=== PATIENT | male | born 1950 | race Caucasian/White ===

== ENCOUNTER → 2018-07-08 10:02 | Outpatient (CLI) | payer MEDICARE, SELFPAY ==
--- NOTE | 2018-07-08 | DI.MRI.S_ITS ---
PROCEDURE: MR KNEE LT WO CON INDICATIONS: UNILATERAL PRIMARY OSTEOARTHRITIS OF LEFT KNEE TECHNIQUE: Noncontrast sagittal PD fast spin echo and T2 fast spin echo with fat saturation, sagittal 3-D FLASH with fat saturation; coronal T1 spin echo and PD fast spin echo with fat saturation, and axial PD fast spin echo with fat saturation through the knee. COMPARISON: [facility], CR, XR KNEE ARTHRITIC SERIES BI, 10/20/2017, 14:00. FINDINGS: Image quality: Excellent. Menisci: Medial extrusion of the medial meniscus is present. There is amorphous high signal intensity throughout the anterior and posterior horns medial meniscus, as well as the medial meniscal body, demonstrating superior and inferior articular surface extension, indicating multifocal degenerative tearing. There is amorphous and linear high signal intensity throughout the anterior and posterior horns lateral meniscus, as well as the lateral meniscal body, demonstrating superior and inferior articular surface extension, indicating multifocal complex tearing. Cruciate ligaments: Posterior cruciate ligament is intact. Chronic full-thickness anterior cruciate ligament tearing is present. Medial structures: The medial collateral ligament appears intact. Visualized portions of the pes anserinus tendons appear normal. No abnormal bursal fluid. Lateral structures: The lateral collateral ligament, long and short heads of the biceps femoris tendon appear intact. The popliteus tendon appears normal. Iliotibial band appears normal. Anterior structures: The quadriceps and patellar tendons appear intact. Patellar alignment is normal. No femoral trochlear dysplasia or ventral trochlear prominence. No edema in the infrapatellar fat pad. Bones and cartilage: No bone marrow contusions or fractures. Severe tricompartmental periarticular osteophyte formation is present. There is mild ill-defined subchondral T2 signal elevation and intraosseous ganglia within the weightbearing aspects of the medial lateral femoral condyles as well as the medial and lateral tibial plateaus. Severe diffuse articular cartilage loss overlies the weightbearing aspects of the medial femoral condyle and medial tibial plateau. Moderate to severe diffuse irregular articular cartilage loss overlies the weightbearing aspects of the lateral femoral condyle and lateral tibial plateau. Multifocal small to moderate size regions of moderate to high grade articular cartilage loss overlying the medial and lateral patellar facets as well as the patellar apex. Joint space: There is a small knee joint effusion and a trace Summers's cyst. Scattered small intra-articular loose bodies, including an 8mm diameter loose body within the Summers's cyst. Normal appearing synovial plicae are incidentally noted. IMPRESSION: 1. Severe tricompartmental osteoarthritis with associated articular cartilage loss. 2. Chronic full-thickness anterior cruciate ligament tear. 3. Severe complex tearing of the medial and lateral menisci. 4. Small knee joint effusion with intra-articular loose bodies. Dictated by: Sukumar Dang M.D. on 07/08/2018 at 11:26 Approved by: Sukumar Dang M.D. on 07/08/2018 at 11:30
== END ==
PROVIDERS: PCP Nurse Practitioner; Visit Provider Orthopaedic Surgery
DX: M17.12 Unilateral primary osteoarthritis, left knee (principal); S83.272A Complex tear of lateral meniscus, current injury, left knee, initial encounter; S83.232A Complex tear of medial meniscus, current injury, left knee, initial encounter; S83.512A Sprain of anterior cruciate ligament of left knee, initial encounter; M25.462 Effusion, left knee
CPT/HCPCS: 73721

== ENCOUNTER 2018-08-07 11:27 | Observation (INO) | payer MEDICARE, SELFPAY ==
[2018-07-27 07:58] VITALS: BMI 26.0
[2018-08-06] VITALS (19 sets, daily range): BP systolic 101–161; BP diastolic 62–95; PULSE 40–91; RESP 7–20; TEMP 36.2–36.8; O2SAT 96–100; BMI 26.0
--- NOTE | 2018-08-06 06:00 | DI.RAD.S_ITS ---
PROCEDURE: XR KNEE LT 1TO2V INDICATIONS: post-operative prosthesis placement TECHNIQUE: 2 view(s) of the knee acquired. COMPARISON: [facility], CR, XR KNEE ARTHRITIC SERIES BI, 10/20/2017, 14:00. FINDINGS: Bones: Patient is status post knee joint arthroplasty. Hardware components are in expected positions. Visualized bony structures are intact. Soft tissues: Overlying postoperative changes are noted. IMPRESSION: No acute cardiopulmonary disease. Dictated by: Mayra Draper M.D. on 08/06/2018 at 15:09 Approved by: Mayra Draper M.D. on 08/06/2018 at 15:09
[2018-08-06] MEDS: ACETAMINOPHEN 325 MG TABLET 975 MG PO ×3 (10:10→20:19)
[2018-08-06] MEDS: PREGABALIN 75 MG CAPSULE PO (10:10)
[2018-08-06] MEDS: CELECOXIB 200 MG CAPSULE PO (10:10)
[2018-08-06] MEDS: LACTATED RINGERS 1,000 ML 42 ML IV (10:10)
--- NOTE | 2018-08-06 10:24 | PM.PREOP ---
Pre-operative Note Interval Note Pre-op Check: Yes History & Physical Reviewed by Physician and Yes Exam Performed Changes: No
[2018-08-06] MEDS: MIDAZOLAM 2 MG/2 ML VIAL IV ×2 (10:25→10:28)
[2018-08-06] MEDS: fentaNYL 100 MCG/2 ML INJ 50 MCG IV ×2 (10:25→10:28)
[2018-08-06] MEDS: CLINDAMYCIN 900 MG/50 ML PIGGYBACK 50 MG IV ×2 (10:41→19:54)
--- NOTE | 2018-08-06 10:43 | P.OP_ITS ---
Operative Date/Time/Diagnoses Date of procedure: 08/06/18 Pre-op diagnosis: Left knee osteoarthritis Post-op diagnosis: same Procedure & Clinicians Procedure: Left total knee arthroplasty Same procedure as scheduled: Yes Indications: The patient presents today for total knee arthroplasty after failure of conservative treatment. The nature of the procedure including the risks and benefits, alternatives, postoperative course and expected outcome were discussed and all questions answered. Consent was obtained. Operative site confirmed and marked. Surgeon: Jaime Astudillo Digital Product Manager: Henok Kim Anesthesia Type: General, Spinal, Peripheral nerve block and Local Operative Notes Findings: Severe osteoarthritis with varus alignment. Closure Type: primary Specimen(s): none sent Implants & Drains: [employer] BCS: 6 femoral component, 6 tibial component, 9 mm BCS polyethylene tray and 35 x 9 mm round patella Applied: implant(s) Estimated Blood Loss (mL): 50 Tourniquet time (min): 24 Procedure in detail: The patient was taken to the operative suite and placed under general and spinal anesthesia with an adductor nerve block. The patient was given prophylactic antibiotics prior to surgery. The patient was also given tranexamic acid, 1 g, just prior to surgery for postoperative hemostasis. The lateral knee was prepped and the joint injected with 20 mL of 1% Lidocaine with epinephrine. The knee was then prepped and draped in usual sterile fashion. The leg was exsanguinated with an Esmarch dressing and the tourniquet raised to 250 torr. A 15 cm anterior incision was made. Next a medial trivector arthrotomy was made. The extensor mechanism was marked to ensure accurate repair. Initial exposing dissection was carried out medially and laterally. The knee was then extended and the patellar thickness was measured and a cut made removing approximately 9 mm of bone with a goal of restoring normal patellar thickness. The patella was then sized and drilled. Some excess lateral bone was excised and the patellofemoral ligament released. The tourniquet was then released. The knee was then flexed and the [employer] femoral guide was placed. The anterior pins were placed and the distal rotation holes drilled. The distal cutting guide was placed and the templated distal femoral cut was made. The templating cutting block was then placed and the anterior, posterior and chamfer cuts made. The [employer] tibial guide was placed and the alignment checked along the axis of the proximal tibial with a julian. The proximal tibial cut was then made with an oscillating saw. All meniscus and bony debris was then removed. Flexion extension gaps were checked. No specific balancing was required other than routine exposure and removal of osteophytes. The soft tissues were then injected with a combination of 20 mL of half percent Marcaine with epinephrine and 20 mL of Exparel. The trial components were then placed. The knee went into full extension and flexion beyond 120?. There was excellent medial- lateral balance throughout motion. Patellar tracking was excellent. The trial components were removed and size is confirmed for the final implants. The knee was then exsanguinated with an Esmarch dressing and the tourniquet reapplied for cementing. The knee was cleansed with Pulsavac irrigation and dried. The final components were cemented in with high viscosity vacuum mixed bone cement with antibiotics. The knee was held in extension and the patellar clamp until the cement had adequately cured. The knee was then irrigated with dilute Betadine solution. The extensor mechanism was closed with 5 interrupted #1 Vicryl sutures in 90 degrees of flexion. The joint was then injected with a combination of 1 g of tranexamic acid and 20 mL of quarter percent Marcaine with epinephrine. The subcutaneous tissue was closed with 2-0 Vicryl. The skin was closed with maxx and surgical adhesive. An Aquacell dressing and Vimal wrap were then applied. Condition: stable Disposition: PACU Plan for aftercare: [facility] protocol.
--- NOTE | 2018-08-06 11:23 | SUR.OPER ---
Supine on padded OR bed. Pillow under head, arms secured on padded armboards <90 degree abduction. Safety belt across torso. Non-operative leg secured with tape over blanket over lower leg. Operative leg secured in DeMayo/Anil positioner. Foam padded brace at thigh of operative leg.
[2018-08-06] MEDS: BUPIVACAINE 0.5% W/ EPI (PF) VIAL 30 ML INJ (11:30)
[2018-08-06] MEDS: TRANEXAMIC ACID 1,000 MG VIAL 1000 MG INJ ×2 (11:31→11:34)
[2018-08-06] MEDS: BUPIVACAINE LIPOSOME 266 MG/20 ML VIAL INJ (11:32)
[2018-08-06] MEDS: LIDOCAINE 1% W/EPI INJ 20 ML INJ (11:32)
[2018-08-06] MEDS: POVIDONE-IODINE 15 ML, SODIUM CHLORIDE 0.9% 250 ML TOP (11:33)
--- NOTE | 2018-08-06 12:59 | SUR.PHASEI ---
Report called to Jesús.
--- NOTE | 2018-08-06 13:20 | SUR.PHASEI ---
Pt transferred to the floor. Report to [place]. VS stable. IV saline locked. Drsg CDI. Spinal level L3-4. No sensation or movement to Lt foot, able to move Rt foot. Belongings bag with patient.
[2018-08-06] MEDS: LACTATED RINGERS 1,000 ML 125 ML IV ×2 (14:13→23:55)
[2018-08-06] MEDS: OXYCODONE IR 5 MG TABLET PO ×2 (17:00→23:50)
[2018-08-06] MEDS: SODIUM CHLORIDE 0.9% 100 ML 500 ML IV (18:16)
--- NOTE | 2018-08-06 18:23 | PC.NURSE ---
Addendum entered by Jessica Davila R.N. 08/06/18 21:36: 1940: BP 131/92, HR 91. Patient awake, alert, asymptomatic. Son at bedside providing supportive care. Calm, pleasant and cooperative. Up out of bed with 1 PA, voided. No SOB, dizziness, or chest pain. Original Note: 175: Patient awake and alert, became diaphoretic, clammy, pale, and dizzy. Patient was laying in bed prior to event, heart rate noted 39-44 on monitor, with 48 Apical rate. O2 sat 98% on RA. Difficulty obtaining a BP, called for staff assistance. Pulses 2+ proximal and distal. Blood glucose 126 mg/dl. 175: BP 85/51 heart rate increased 62, patient states still dizzy but feels better, remain awake and alert. Initiated IVF bolus 500 ml. 175: BP 101/62, HR 70, patient warm, pink, mild pallor noted. 175: BP 107/74, HR 85, warm, pink, non diaphoretic. Continue awake, alert, denies dizziness or nausea. 1800: Notify Dr. Jenkins regarding event, obtained order for IVF, continuous vehicle monitor technician, and to notify her if further decline for medical management consult. Tele: NSR, BBB, occasional PACs. 180: BP 126/73, HR 82, remain asymptomatic. Warm, pink, 2+ pulses distal and proximal. 180: 130/77, 80, patient continue awake, alert, talkative, remain asymptomatic. No c/o chest pain, dizziness, or SOB. Will continue to monitor closely. 184: BP: 133/75, HR 81, 98% on RA, RR 18. Patient remain awake and alert, asymptomatic.
[2018-08-06] MEDS: ASPIRIN EC 81 MG TABLET PO (20:19)
[2018-08-07] VITALS (11 sets, daily range): BP systolic 102–160; BP diastolic 37–97; PULSE 49–92; RESP 15–18; TEMP 36.5–37.1; O2SAT 95–100
--- NOTE | 2018-08-07 | DI.RAD.S_ITS ---
PROCEDURE: XR CHEST 1V INDICATIONS: hypotension TECHNIQUE: One view of the chest was acquired. COMPARISON: None. FINDINGS: Surgical changes and devices: None. Lungs and pleura: No pleural effusions or pneumothorax. Lungs are clear. Mediastinum: Mediastinal contours appear normal. Heart size is normal. Bones and chest wall: No suspicious bony lesions. Overlying soft tissues appear unremarkable. IMPRESSION: No acute cardiopulmonary pathology. Dictated by: Prabhu Ta M.D. on 08/07/2018 at 20:09 Approved by: Prabhu Ta M.D. on 08/07/2018 at 20:09
[2018-08-07] MEDS: CLINDAMYCIN 900 MG/50 ML PIGGYBACK 50 MG IV (02:35)
[2018-08-07] MEDS: OXYCODONE IR 5 MG TABLET PO ×5 (04:35→23:57)
[2018-08-07 06:52] LABS: Hemoglobin 11.5 g/dL (13.5-17.5)
--- NOTE | 2018-08-07 07:45 | PM.DS.1 ---
History of Present Illness Chief complaint: 37022 Discharge Providers Date of admission: 08/06/18 09:19 Primary care physician: LENA Coates Consults: 08/06/18 13:22 Consult to Discharge Planning Routine Comment: Consult to Physical Therapy Evaluate & Treat Comment: Physician Instructions: postop TKA protocol Consult to Respiratory Therapy Evaluate & Treat Comment: Physician Instructions: Evaluate and treat Discharge provider: Lana Alcantara PA-C Exam Vital Signs (past 8 hours): - 08/07/18 04:49 Temperature 97.7 F Pulse Rate 68 Respiratory Rate 16 Blood Pressure 123/67 Pulse Oximetry 95 Oxygen Delivery Method Room Air Oxygen Flow Rate 0 Objective Labs Result Diagrams: 08/07/18 06:20 Labs: Laboratory Results - last 24 hr 08/07/18 06:20 Hgb 11.5 L Hct 34.0 L Discharge Plan Discharge Plan Patient Disposition: Home Discharge Med Rec/Prescriptions Prescriptions: New acetaminophen 325 mg Tablet 975 mg PO TID Qty: 0 RF: 0 aspirin 81 mg Tablet,Delayed Release (Dr/Ec) 81 mg PO BID Qty: 0 RF: 0 oxycodone 5 mg Tablet 5 mg PO Q4-6H PRN (Reason: Pain, Moderate (4-6)) Qty: 0 RF: 0 meloxicam [Mobic] 7.5 mg Tablet 15 mg PO 0800 Qty: 0 RF: 0 hydroxyzine pamoate 25 mg Capsule 25 mg PO Q4HR PRN (Reason: Muscle Spasm) Qty: 0 RF: 0 Continue atorvastatin 80 mg Tablet 80 mg PO QAM RF: 0 losartan 100 mg Tablet 100 mg PO BEDTIME RF: 0 Discontinued aspirin [Aspir-81] 81 mg Tablet,Delayed Release (Dr/Ec) 81 mg PO DAILY RF: 0 ibuprofen 200 mg Tablet 400 mg PO QAM RF: 0 Provider Discharge Instructions Diet: Diet as Tolerated Activity: Weightbearing as tolerated, use walker until cleared by physical therapy. Cold/Heat Therapy: Apply ice twenty minutes at a time to operative area at least hourly while awake. Skin/Wound/Dressing Care Report to your healthcare provider any signs of infection, such as:: chills, fever, night sweats, increased pain and unusual drainage Dressing: Keep dressing clean, dry, and intact. May shower with dressing in place. Visit Report/Discharge Packet Instructions: DI for Knee Replacement Discharge Data Primary Care Provider: Helen Giordano Attending Provider: Jaime Astudillo Admit Date/Time: 08/06/18 09:19 Quality VTE Deep Vein Thrombosis/Pulmonary Embolism Present on Admission: No
[2018-08-07] MEDS: ATORVASTATIN 20 MG TABLET 80 MG PO (08:23)
[2018-08-07] MEDS: MELOXICAM 7.5 MG TABLET 15 MG PO (08:23)
--- NOTE | 2018-08-07 08:23 | PM.PNPO.1 ---
Subjective Date Patient Seen: 08/07/18 Time Patient Seen: 08:24 Interval history: I was asked to evaluate the patient by the nurse. Patient had been up in his chair and had been walking a little bit in the room. While he was sitting in the chair with his legs down he became lightheaded and was hypotensive and bradycardic. He was placed in Trendelenburg position and his symptoms resolved fairly quickly. He had a similar episode yesterday which resolved with position. EKG done yesterday was normal. He states he feels normal at this time. He has not had any similar episodes in the past. He is on valsartan for blood pressure. Has been getting some IV LR. Apparently did well with physical therapy yesterday and was to be discharged home today. Exam Vital Signs (past 8 hours): - 08/07/18 04:49 08/07/18 08:02 08/07/18 08:10 Temperature 97.7 F 98.4 F Pulse Rate 68 76 49 L Respiratory Rate 16 16 Blood Pressure 123/67 130/97 H 102/37 L Pulse Oximetry 95 100 08/07/18 08:15 Temperature Pulse Rate 67 Respiratory Rate Blood Pressure 127/67 Pulse Oximetry Oxygen Delivery Method Room Air Oxygen Flow Rate 0 Narrative Exam Narrative: Alert, oriented in no acute distress lying in beach chair position in chair. Neck. No bruits. Lungs clear. Clear to auscultation without rales rhonchi or wheeze. Heart. Regular rhythm without murmur or extra sound. Abdomen. Bowel sounds active in soft without mass or tenderness. Objective Labs Result Diagrams: 08/07/18 06:20 Labs: Laboratory Results - last 24 hr 08/07/18 06:20 Hgb 11.5 L Hct 34.0 L Assessment & Plan Post-op Postoperative Procedures Operation Date: 08/06/18 11:00 Actual Procedures Side Surgeon p Total Knee Arthroplasty Left Jaime Astudillo MD Will give patient bolus of normal saline 500 mL. Will hold his valsartan. Will observe patient today for any return of symptoms and see how his function is. The as repeat episode would plan to have the hospitalist evaluate the patient. Will hold discharge for today. Will plan discharge to home tomorrow if he is stable. Quality VTE Deep Vein Thrombosis/Pulmonary Embolism Present on Admission: No
[2018-08-07] MEDS: ACETAMINOPHEN 325 MG TABLET 975 MG PO ×2 (08:24→16:09)
[2018-08-07] MEDS: ASPIRIN EC 81 MG TABLET PO ×2 (08:24→20:01)
[2018-08-07] MEDS: SODIUM CHLORIDE 0.9% 100 ML 500 ML IV (08:30)
[2018-08-07] MEDS: LACTATED RINGERS 1,000 ML 125 ML IV ×2 (09:34→17:26)
--- NOTE | 2018-08-07 10:25 | PC.NURSE ---
HYPOTENSIVE/BRADYCARDIC EPISODE 0810. PATIENT HAD AMBULATED IN RM TO BR AND BACK THIS AM, ASYMPTOMATIC. AT 0810 WAS SITTING IN RECLINER W/ LEGS DEPENDANT AND BECAME DIAPHORETIC AND FELT DIZZY WHILE SITTING. BP 102/37 HR 49, BUT LOW 40 ON TELE MONITOR. RECLINED INTO TRENDELENBERG POSITION WITH PROMPT RESOLVE OF SYMPTOMS AND RECOVERY OF BP TO 127/67 AND HR 67. PATIENT DOES REPORT HE HAS NOT BEEN DRINKING MUCH IN THE WAY OF FLUIDS, ENCOURAGED PO FLUID INTAKE. NOTIFIED MAT RAGSDALE OF FINDINGS THIS AM WHICH ARE SECOND OCCURANCE, WITH FIRST OCCURANCE YESTERDAY [place]. JN ASSESSED PATIENT. PLAN TO HOLD DC UNTIL TOMORROW. GIVEN 500CC NS BOLUS. 0956: PATIENT READY TO GET UP TO BR TO VOID. RECUMBANT BP 136/66 HR 76 SITTING BP 128/72 HR 82 STANDING BP 118/76 HR 82 ASYMPTOMATIC DURING AMBULATION AND ONCE BACK TO RECLINER. RECHECKED BP AFTER AMBULATION, REMAINED STABLE 138/76 HR 83. LR CONTINUES TO RUN ORDERED.
--- NOTE | 2018-08-07 15:13 | CM.IDA ---
Discharge Planning/Care Management CM Discharge Assessment Start: 08/07/18 15:01 Freq: Status: Active Protocol: Document 08/07/18 15:01 JAM (Rec: 08/07/18 15:13 JAM [id number]) Discharge Planning Assessment Assigned National Recruiter ALFIE Plata DPOA/Assigned Designee Name kalpesh Bob Contact Information [phone] Advance Directives? No: Information mailed to patient History Provided By Patient Prior Living Arrangements House Household Members children Comment Lives w/son Type of transporation used prior to Drives own vehicle admit Independent with ADL's Yes Is patient alert and oriented? 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 Barriers to Discharge No Comment Met w/pt, explained role. Pt is POD#1 from left knee surgery. He expected to go home today but had a change in medical status this morning and may spend another night here. Pt explains he lives w/his son who has taken some time off to be available to assist pt prn. PT=home w/family to assist and outpt PT Pt confident about his return home when medically stable, family to transport home. Discharge Plan Home Transportation Arrangement Family Referrals Initiated None needed Whiteboard Updated in Patient Room with Yes name and ext. # of National Recruiter
--- NOTE | 2018-08-07 15:33 | PM.PNPO.1 ---
Subjective Date Patient Seen: 08/07/18 Time Patient Seen: 07:20 Interval history: Patient seen bedside s/p L. TKA POD #1. Patient is resting comfortably, however he had an episode of bradycardia yesterday that has since resolved. Pain is starting to worsen but is controlled by medication. He denies SOB, N/V, dizziness at this time. Exam Vital Signs (past 8 hours): - 08/07/18 08:02 08/07/18 08:10 08/07/18 08:15 Temperature 98.4 F Pulse Rate 76 49 L 67 Pulse Rate [Orthostatic Lying] Pulse Rate [Orthostatic Sitting] Pulse Rate [Orthostatic Standing] Respiratory Rate 16 Blood Pressure 130/97 H 102/37 L 127/67 Blood Pressure [Orthostatic Lying] Blood Pressure [Orthostatic Sitting] Blood Pressure [Orthostatic Standing] Pulse Oximetry 100 08/07/18 09:56 08/07/18 10:04 08/07/18 11:27 Temperature 98.7 F Pulse Rate 83 77 Pulse Rate [Orthostatic Lying] 76 Pulse Rate [Orthostatic Sitting] 82 Pulse Rate [Orthostatic Standing] 82 Respiratory Rate 15 Blood Pressure 138/76 116/57 L Blood Pressure [Orthostatic Lying] 136/66 Blood Pressure [Orthostatic Sitting] 128/72 Blood Pressure [Orthostatic Standing] 118/76 Pulse Oximetry 95 Oxygen Delivery Method Room Air Oxygen Flow Rate 0 Narrative Exam Narrative: WDWN NAD A&OX3. Dressing is clean, dry, and intact with no signs of drainage. He is NVI in the operative extremity with a soft and compressible calf. Objective Labs Result Diagrams: 08/07/18 06:20 Labs: Laboratory Results - last 24 hr 08/07/18 06:20 Hgb 11.5 L Hct 34.0 L Assessment & Plan Post-op Postoperative Procedures Operation Date: 08/06/18 11:00 Actual Procedures Side Surgeon p Total Knee Arthroplasty Left Jaime Astudillo MD 1. Continue PT, pain control, DVT prophylaxis. Discharge once stable and cleared by physical therapy. Quality VTE Deep Vein Thrombosis/Pulmonary Embolism Present on Admission: No
--- NOTE | 2018-08-07 16:15 | PT.IIE ---
Addendum entered and electronically signed by Tosha Stevens PT 08/07/18 17:58: this is to certify that I have reviewed this documentation and POC Original Note: Current Diagnoses Unilateral primary osteoarthritis, left knee (08/06/18) Surgery Performed Operation Date: 08/06/18 11:00 Actual Procedures p Total Knee Arthroplasty(Left) - Jaime Astudillo MD Surgical History (Last Updated 07/27/18 @ 08:08 by Diandra Goddard RN) Hx of appendectomy (Acute) Hx of arthroscopy of right knee (Acute) Medical History (Last Updated 07/27/18 @ 08:08 by Diandra Goddard RN) Arthritis (Acute) HTN (hypertension) (Acute) Hyperlipidemia (Acute) Polymyalgia (Acute) Physical Therapy Inpatient Evaluation/Re-Eval M1 PT/OT-IP Prior Functional Status Start: 08/06/18 17:39 Freq: NEEDED Status: Active Protocol: Document 08/07/18 16:15 (Rec: 08/07/18 17:55 [email or web address]) Medical Review Prior Functional Status Medical History Reviewed Yes Diet/Fluid Consistency Regular Communication No previous deficits noted. Mobility and Gait Prior to his knee surgery the patient was independent in all previous mobilities including ambulation and self care using no AD. Social History Household Members children Living Arrangements House Number of Floors (Floors) Two Floors Number of Stairs To Enter/Railing? 1 step to enter home. 15-20 steps to 2nd floor. Pt is set up to live on 1st floor and sponge bathe. Home Environment Standard Height Toilet Tub/Shower Home Equipment Front Wheel Walker Additional Social History Comment Son is avaliable for 24/7 assist. Pt's tub/shower is located on 2nd floor. M2 PT-IP Current Condition Start: 08/06/18 17:39 Freq: NEEDED Status: Active Protocol: Document 08/07/18 16:15 (Rec: 08/07/18 17:55 [email or web address]) Physical Therapy Current Condition Current Condition Evaluation Date 08/07/18 Treatment Diagnosis Left TKA; Orthostatic hypotension; difficulty walking Onset Date 08/06/2018 Weight Bearing Status Weight Bearing Status Weight Bear as Tolerated M3 PT-IP Subjective Start: 08/06/18 17:39 Freq: NEEDED Status: Active Protocol: Document 08/07/18 16:15 (Rec: 08/07/18 17:55 [email or web address]) Subjective Physical Therapy Visit Type Type Re-Evaluation Visit Start Time 16:15 Visit Stop Time 16:42 Total Visit Minutes 28 Number of PLASTIC MAKER Visits 0 Physical Therapy Visit Comments Patient Comments Pt agreeable to mobilize. Patient Goals Pt planning to d/c home with his son as 28/04 assist. Therapy Pain Assessment Pain When Pain Assessed At Rest Pain Present Pain Present Pain Reported Location Left Knee Scale Used 5/10 Pain Management Techniques Apply Cold Elevation Modification of Treatment Re-positioning Timing of Activity with Medications M4 PT-IP Mobility and Gait Start: 08/06/18 17:39 Freq: NEEDED Status: Active Protocol: Document 08/07/18 16:15 (Rec: 08/07/18 17:55 [email or web address]) PT-Bed Mobility Assessment Supine to Sit Supine to Sit Standby Assistance Sit to Supine Sit to Supine Minimal Assistance Scooting Scooting to Edge of Bed Standby Assistance PT-Transfer Assessment Comments Mobility Comments Resting/supine BP 141/73 HR 75 . Pt is SBA for supine to sit . BP at EOB is 106/59 HR 68. Cued to rest and breathe. Pt beginning to c/o dizziness, appears pale and diaphoretic. Assisted back to supine with Kavya x1. Supine BP 102/58 HR 61. Positioned pt with BLE elevated, pt cued for deep breathing and cold washcloth placed on forehead. After 1-2 mins. resting supine BP 134/ 78 HR 72. Nurse aware and pt left in room with nursing. PT-Balance Assessment Sitting Balance and Reactions Static Sitting Balance Ability Good M5 PT-IP Objective Assessments Start: 08/06/18 17:39 Freq: NEEDED Status: Active Protocol: Document 08/07/18 16:15 (Rec: 08/07/18 17:55 [email or web address]) Orientation Orientation/Cognition Level of Alertness Alert Orientation Name Age Birthday Month Date Year Day of Week Place Situation Language Function Ability No Deficits Noted Gross Range of Motion Lower Extremity ROM Assessment Left Impaired Impairments Performed AAROME for L knee flexion/extension. R knee flexion PROM after ~70deg. Strength Lower Extremity Strength Assessment Left Impaired Comments Strength Comments RLE WNL. L knee grossly 3+/5. M6 PT-IP Treatment Start: 08/06/18 17:39 Freq: NEEDED Status: Active Protocol: Document 08/07/18 16:15 (Rec: 08/07/18 17:55 [email or web address]) Physical Therapy Treatment Education Education Provided Precautions Weight Bearing Status Post-Op Packet Safety M7 PT-IP Assessment and Plan Start: 08/06/18 17:39 Freq: NEEDED Status: Active Protocol: Document 08/07/18 16:15 (Rec: 08/07/18 17:55 [email or web address]) PT Summary Assessment and Plan Potential Rehabilitation Potential Good Status of Condition at Evaluation Evolving Summary Impairments Pain ROM Strength Balance Bed Mobility Transfers Gait Activity Tolerance Progress Towards Goals Slow Progress due to Medical Issues Assessment Summary Pt s/p L TKA, orthostatic hypotension and difficulty walking. He was only able to tolerate 1-2 mins. sitting EOB prior to c/o dizziness and had decrease in BP and HR. Due to pt's decreased tolerance to activity, ongoing assessment of mobility is required. Pending pt progress with mobility and ambulation, we anticipate d/c to home with 24/7 assist and f/u for OP PT when pt is medically stable. Goals Bed Mobility Goal Independent Transfer Goal Standby Assistance Front Wheeled Walker Gait Goal Standby Assistance Front Wheel Walker Gait Distance 150 Other Goals up/down 1 platform step with fww CGA up/down 15 steps with R rail CGA as appropriate for pt safe access to 2nd floor where his tub/shower is located. Days to Meet Goals 3 Frequency of Treatment Frequency Of Treatment Twice a Day Treatment Plan Physical Therapy Treatment Plan Bed Mobility Training Transfer Training Gait Training Therapeutic Exercise Balance Retraining Post Op Education Discharge Planning Hot or Cold Pack Neuromuscular Re-ed Coordination Retraining Manual Therapy Other Recommendations and Next Treatment Progress ambulation and stair Focus climbing as tolerated. Recommendations To Nursing Amount of Assist Needed 1 Person Assist Discharge Recommendations PT Discharge Recommendations Home with 24/7 Assist Outpatient PT
--- NOTE | 2018-08-07 16:47 | PC.NURSE ---
Patient is A&O x3, pleasant and cooperative w/ staff. Pt up with PT around 1615 to stand and ambulate. Patient upon sitting up in bed exp. hypotensive and joann episode, b/p dropped from 141/73 to 102/57. Pt was placed in trend. pos and new b/p was obtained after cool wash cloth was placed on forhead. 134/78. Patients color returned to face but eye remained to appear glassy. Call placed to Dr. Poon regarding cont. of episodes per his note this AM if sxs persists then hospitalist to be contacted for consult. Patient is aware of butch. Ayah to call Dr. Kwong.
--- NOTE | 2018-08-07 18:44 | PM.CN ---
History of Present Illness Date Patient Seen: 08/07/18 Time Patient Seen: 18:44 Chief complaint: [id number] Reason for consult: Hypotension Requesting provider: Jaime Astudillo Narrative: 68-year-old male status post knee replacement surgery yesterday has been having some dizziness and lightheadedness over the course of the last 24 hr. Today again when he got up to do physical therapy became very lightheaded had some nausea. He was noted to be quite orthostatic his blood pressure lying down 140 systolic dropped to 102 just sitting up. He denies any chest pain denies any difficulty breathing with this mainly just the symptoms of the nausea and lightheadedness. PFSH Medical History Arthritis (Acute) HTN (hypertension) (Acute) Hyperlipidemia (Acute) Polymyalgia (Acute) Surgical History Hx of appendectomy (Acute) Hx of arthroscopy of right knee (Acute) Social History household members: children Smoking Status: Never smoker alcohol intake: current Meds Home Medications Medication Instructions Recorded Confirmed Type atorvastatin 80 mg PO QAM 07/27/18 08/06/18 History losartan 100 mg PO BEDTIME 07/27/18 08/06/18 History acetaminophen 975 mg PO TID #0 tab 08/07/18 Rx aspirin 81 mg PO BID #0 tab 08/07/18 Rx hydroxyzine pamoate 25 mg PO Q4HR PRN #0 cap 08/07/18 Rx meloxicam [Mobic] 15 mg PO 0800 #0 tab 08/07/18 Rx oxycodone 5 mg PO Q4-6H PRN #0 tab 08/07/18 Rx Allergies Allergy/AdvReac Type Severity Reaction Status Date / Time Penicillins Allergy Pt unsure Verified 07/27/18 08:04 of reaction, happened long ago Review of Systems Constitutional Constitutional: Reports system reviewed and no additional complaints, except as documented Eyes Eyes: Reports system reviewed; no additional complaints, except as documented ENT Ears, Nose, Mouth, and Throat: Yes system reviewed; no additional complaints, except as documented Cardiovascular Cardiovascular: Denies chest pain and Denies irregular heart rhythm Respiratory Respiratory: Denies chest congestion and Denies cough Gastrointestinal Gastrointestinal: Reports system reviewed and no additional complaints, except as documented Genitourinary Genitourinary: Reports system reviewed and no additional complaints, except as documented Musculoskeletal Musculoskeletal: Reports system reviewed; no additional complaints, except as documented Integumentary/Breasts Skin/Breast: Reports system reviewed and no additional complaints, except as documented Neurologic Neurologic: Reports system reviewed and no additional complaints, except as documented Psychiatric Psychiatric: Reports system reviewed and no additional complaints, except as documented Endocrine Endocrine: Reports system reviewed and no additional complaints, except as documented Hematologic/Lymphatic Hematologic/Lymphatic: Reports system reviewed and no additional complaints, except as documented Allergic/Immunologic Allergic/Immunologic: Reports system reviewed and no additional complaints, except as documented Exam Vital Signs (past 8 hours): - 08/07/18 11:27 08/07/18 15:20 Temperature 98.7 F 98.6 F Pulse Rate 77 71 Respiratory Rate 15 18 Blood Pressure 116/57 L 125/70 Pulse Oximetry 95 98 Oxygen Delivery Method Room Air Oxygen Flow Rate 0 Narrative Exam Narrative: Pleasant male no acute distress HEENT exam unremarkable Neck is supple no bruit no JVD Lungs Clear to auscultation Heart regular rhythm no murmur Abdomen soft nontender bowel sounds present Lower extremities no edema Skin moist and warm Neuro exam awake alert oriented x3 Objective Labs Result Diagrams: 08/07/18 06:20 Labs: Laboratory Results - last 24 hr 08/07/18 06:20 Hgb 11.5 L Hct 34.0 L Assessment & Plan Plan: Assessment/Plan Narrative: One. Orthostatic hypotension with bradycardia. Seems to be a vasovagal reaction. Plan to hold his losartan. Plan to continue IV fluid boluses continue checking orthostatics. Plan to check troponin CBC and chemistry profile and cardiac rhythm. Repeat the troponin in the morning also. 2. Recent knee surgery management as per Orthopedics
[2018-08-07 19:07] LABS: Add Manual Diff / Slide Review NO; Basophils Percent Auto 0.2 % (0-2); Eosinophils Percent Auto 0.1 % (2-4); Hematocrit 31.6 % (41-53); Hemoglobin 10.6 g/dL (13.5-17.5); Lymphocytes Percent Auto 9.6 % (25-40); Mean Corpuscular HGB Conc 33.7 % (30-36); Mean Corpuscular Hemoglobin 32.3 PG (26-34); Monocytes Percent Auto 9.9 % (3-14); Neutrophils Absolute Auto 9100 /uL (3000-5900); Neutrophils Percent Auto 80.2 % (50-75); Platelet Count 167 X10^3/uL (150-400); Red Blood Cell Count 3.29 X10^6/uL (4.5-5.9); Red Cell Distribution Width 12.3 % (11.6-14.8); White Blood Cell Count 11.4 X10^3/uL (4.5-11.0)
[2018-08-07 19:19] LABS: Alanine Aminotransferase 32 IU/L (21-72); Albumin 3.3 g/dL (3.5-5.0); Albumin Globulin Ratio 1.4 (1.0-2.8); Alkaline Phosphatase 41 U/L (38-126); Aspartate Aminotransferase 19 IU/L (17-59); Bilirubin Total 0.6 mg/dL (0.2-1.3); Blood Urea Nitrogen 14 mg/dL (9-20); Calcium 8.2 mg/dL (8.4-10.2); Carbon Dioxide 29 mmol/L (22-32); Chloride 103 mmol/L (98-107); Estimated Glomerular Filt Rate > 60.0 mL/min (>60); Globulin 2.4 g/dL (1.7-4.1); Glucose 114 mg/dL (80-110); HEMOLYSIS < 15 (0-50); Potassium 4.2 mmol/L (3.4-5.1); Sodium 140 mmol/L (137-145); Total Protein 5.7 g/dL (6.3-8.2)
[2018-08-07 19:31] LABS: Troponin I < 0.012 ng/mL (0.01-0.034)
[2018-08-07 19:34] LABS: Bacteria Urine None Seen; RBC Urine None Seen (0-5/HPF)
[2018-08-07 19:36] LABS: Appearance Urine UA CLEAR; Bilirubin Urine UA NEGATIVE (NEGATIVE); Color Urine UA YELLOW; Glucose Urine UA NEGATIVE (Normal); Ketones Urine UA NEGATIVE (NEGATIVE); Leukocyte Esterase Urine UA NEGATIVE (NEGATIVE); Nitrite Urine UA NEGATIVE (Negative); Occult Blood Urine UA NEGATIVE (Negative); Protein Urine UA NEGATIVE (Negative); Urobilinogen Urine UA 0.2 E.U./dL (0.2); pH Urine UA 5.5 (4.5-8.0)
[2018-08-07 19:45] LABS: Culture Indicated Urine Cult Not Indicated; Squamous Epithelial Cell Urine 0-1 /HPF; WBC Urine 1-5/HPF (0-5/HPF)
[2018-08-07] MEDS: hydrOXYzine pamoate 25 MG CAPSULE PO ×2 (20:01→23:56)
[2018-08-07] MEDS: HYDROCODONE/ACET 5/325 TABLET 1 TAB PO (20:01)
[2018-08-08] VITALS (9 sets, daily range): BP systolic 117–157; BP diastolic 67–83; PULSE 73–98; RESP 16–18; TEMP 36.7–37.4; O2SAT 95–99
[2018-08-08] MEDS: OXYCODONE IR 5 MG TABLET PO ×5 (03:52→18:13)
[2018-08-08] MEDS: LACTATED RINGERS 1,000 ML 125 ML IV (03:54)
--- NOTE | 2018-08-08 06:36 | PC.NURSE ---
Pt is AxOx3, VSS, very anxious. No nausea throughout shift. Did not get lightheaded or diaphoretic upon standing. Orthostatic BP done for sitting and standing and no real change. Complaints of 7 out of 10 pain when ambulating to bathroom, Oxycodone 5mg given twice, and vistaril given once. IVF continued. Tele showing NSR & BBB. SCDs on. Ice on left knee.
[2018-08-08] MEDS: ACETAMINOPHEN 325 MG TABLET 975 MG PO ×3 (08:31→20:38)
[2018-08-08] MEDS: ATORVASTATIN 20 MG TABLET 80 MG PO (08:31)
[2018-08-08] MEDS: ASPIRIN EC 81 MG TABLET PO ×2 (08:32→20:38)
[2018-08-08] MEDS: MELOXICAM 7.5 MG TABLET 15 MG PO (08:32)
[2018-08-08 08:37] LABS: Troponin I 0.013 ng/mL (0.01-0.034)
--- NOTE | 2018-08-08 09:12 | PM.PNPO.1 ---
Subjective Date Patient Seen: 08/08/18 Time Patient Seen: 09:13 Interval history: Patient's pain is moderate. Denies fever chills. No dizziness. No shortness of breath or chest pain. Was not able to work with physical therapy yesterday secondary to lightheadedness. Exam Vital Signs (past 8 hours): - 08/08/18 01:26 08/08/18 03:45 08/08/18 08:28 Temperature 99.4 F 98.8 F Pulse Rate 76 91 H Pulse Rate [Orthostatic Sitting] 90 Pulse Rate [Orthostatic Standing] 98 H Respiratory Rate 17 16 Blood Pressure 141/78 H 157/67 H Blood Pressure [Orthostatic Sitting] 117/68 Blood Pressure [Orthostatic Standing] 120/68 Pulse Oximetry 95 98 Oxygen Delivery Method Room Air Oxygen Flow Rate 0 Narrative Exam Narrative: Pleasant 68-year-old male resting comfortably in bed in no apparent distress. Left knee dressing is clean, dry and intact. Sensation grossly intact to light touch. Motor functions intact distal left lower extremity. Objective Labs Result Diagrams: 08/07/18 19:01 08/07/18 19:01 Labs: Laboratory Results - last 24 hr 08/07/18 08/07/18 08/07/18 19:01 19:01 19:33 WBC 11.4 H RBC 3.29 L Hgb 10.6 L Hct 31.6 L MCV 96.0 MCH 32.3 MCHC 33.7 RDW 12.3 Plt Count 167 Neut % (Auto) 80.2 H Lymph % (Auto) 9.6 L [place] % (Auto) 9.9 Eos % (Auto) 0.1 L Baso % (Auto) 0.2 Neut # (Auto) 9100 H Sodium 140 Potassium 4.2 Chloride 103 Carbon Dioxide 29 BUN 14 Creatinine 0.70 Estimated GFR > 60.0 BUN/Creatinine Ratio 20.0 Glucose 114 H Calcium 8.2 L Total Bilirubin 0.6 AST 19 ALT 32 Alkaline Phosphatase 41 Troponin I < 0.012 Total Protein 5.7 L Albumin 3.3 L Globulin 2.4 Albumin/Globulin Ratio 1.4 Urine Color Yellow Urine Appearance Clear Urine pH 5.5 Ur Specific [place] 1.010 Urine Protein Negative Urine Glucose (UA) Negative Urine Ketones Negative Urine Occult Blood Negative Urine Nitrate Negative Urine Bilirubin Negative Urine Urobilinogen 0.2 Ur Leukocyte Esterase Negative Urine RBC None seen Urine WBC 1-5/hpf Ur Squamous Epith Cells 0-1 /hpf Urine Bacteria None seen Ur Culture Indicated? Cult not indicated Micro UA Comment Not Reportable 08/08/18 07:34 WBC RBC Hgb Hct MCV MCH MCHC RDW Plt Count Neut % (Auto) Lymph % (Auto) [place] % (Auto) Eos % (Auto) Baso % (Auto) Neut # (Auto) Sodium Potassium Chloride Carbon Dioxide BUN Creatinine Estimated GFR BUN/Creatinine Ratio Glucose Calcium Total Bilirubin AST ALT Alkaline Phosphatase Troponin I 0.013 Total Protein Albumin Globulin Albumin/Globulin Ratio Urine Color Urine Appearance Urine pH Ur Specific [place] Urine Protein Urine Glucose (UA) Urine Ketones Urine Occult Blood Urine Nitrate Urine Bilirubin Urine Urobilinogen Ur Leukocyte Esterase Urine RBC Urine WBC Ur Squamous Epith Cells Urine Bacteria Ur Culture Indicated? Micro UA Comment August 08, 2018 Troponin I 0.013 0.01-0.034 ng/mL Chest x-ray August 07, 2018: Impression, no acute cardiopulmonary pathology Assessment & Plan Post-op Postoperative Procedures Operation Date: 08/06/18 11:00 Actual Procedures Side Surgeon p Total Knee Arthroplasty Left Jaime Astudillo MD Postop day 2 status post left total knee arthroplasty. Patient of mobilizing well with physical therapy the next day after surgery however he became hypotensive and bradycardic. Hospitalist consultation requested. plan was to hold his losartan. Rehydrate with IV fluids. Mobilize with physical therapy each day. Likely discharge home tomorrow if medically stable per hospitalist. Quality VTE Deep Vein Thrombosis/Pulmonary Embolism Present on Admission: No
--- NOTE | 2018-08-08 10:20 | PM.PN.1 ---
Subjective Date Patient Seen: 08/08/18 Time Patient Seen: 10:20 Interval history: He is feeling better the dizziness has symptoms have resolved Exam Vital Signs (past 8 hours): - 08/08/18 03:45 08/08/18 08:28 Temperature 99.4 F 98.8 F Pulse Rate 76 91 H Respiratory Rate 17 16 Blood Pressure 141/78 H 157/67 H Pulse Oximetry 95 98 Oxygen Delivery Method Room Air Oxygen Flow Rate 0 Narrative Exam Narrative: Resting comfortably no acute distress Heart regular rhythm Lungs clear Objective Labs Result Diagrams: 08/07/18 19:01 08/07/18 19:01 Labs: Laboratory Results - last 24 hr 08/07/18 08/07/18 08/07/18 19:01 19:01 19:33 WBC 11.4 H RBC 3.29 L Hgb 10.6 L Hct 31.6 L MCV 96.0 MCH 32.3 MCHC 33.7 RDW 12.3 Plt Count 167 Neut % (Auto) 80.2 H Lymph % (Auto) 9.6 L [place] % (Auto) 9.9 Eos % (Auto) 0.1 L Baso % (Auto) 0.2 Neut # (Auto) 9100 H Sodium 140 Potassium 4.2 Chloride 103 Carbon Dioxide 29 BUN 14 Creatinine 0.70 Estimated GFR > 60.0 BUN/Creatinine Ratio 20.0 Glucose 114 H Calcium 8.2 L Total Bilirubin 0.6 AST 19 ALT 32 Alkaline Phosphatase 41 Troponin I < 0.012 Total Protein 5.7 L Albumin 3.3 L Globulin 2.4 Albumin/Globulin Ratio 1.4 Urine Color Yellow Urine Appearance Clear Urine pH 5.5 Ur Specific [place] 1.010 Urine Protein Negative Urine Glucose (UA) Negative Urine Ketones Negative Urine Occult Blood Negative Urine Nitrate Negative Urine Bilirubin Negative Urine Urobilinogen 0.2 Ur Leukocyte Esterase Negative Urine RBC None seen Urine WBC 1-5/hpf Ur Squamous Epith Cells 0-1 /hpf Urine Bacteria None seen Ur Culture Indicated? Cult not indicated Micro UA Comment Not Reportable 08/08/18 07:34 WBC RBC Hgb Hct MCV MCH MCHC RDW Plt Count Neut % (Auto) Lymph % (Auto) [place] % (Auto) Eos % (Auto) Baso % (Auto) Neut # (Auto) Sodium Potassium Chloride Carbon Dioxide BUN Creatinine Estimated GFR BUN/Creatinine Ratio Glucose Calcium Total Bilirubin AST ALT Alkaline Phosphatase Troponin I 0.013 Total Protein Albumin Globulin Albumin/Globulin Ratio Urine Color Urine Appearance Urine pH Ur Specific [place] Urine Protein Urine Glucose (UA) Urine Ketones Urine Occult Blood Urine Nitrate Urine Bilirubin Urine Urobilinogen Ur Leukocyte Esterase Urine RBC Urine WBC Ur Squamous Epith Cells Urine Bacteria Ur Culture Indicated? Micro UA Comment Assessment & Plan Plan: Assessment/Plan Narrative: One. Orthostatic hypotension with bradycardia. Seems to be a vasovagal reaction. This has now resolved. We had stopped the losartan and place him on some fluids and he seems to be fluid replete at this point. Labs were unremarkable EKG showed right bundle branch block chest x-ray was normal. At this point I think he is cleared medically to be discharged when okay with Orthopedics. 2. Recent knee surgery management as per Orthopedics Quality VTE Deep Vein Thrombosis/Pulmonary Embolism Present on Admission: No
--- NOTE | 2018-08-08 12:10 | PT.IPTN ---
Current Diagnoses Unilateral primary osteoarthritis, left knee (08/06/18) Surgery Performed Operation Date: 08/06/18 11:00 Actual Procedures p Total Knee Arthroplasty(Left) - Jaime Astudillo MD Physical Therapy Treatment Note M2 PT-IP Current Condition Start: 08/06/18 17:39 Freq: NEEDED Status: Active Protocol: Document 08/07/18 16:15 (Rec: 08/07/18 17:55 [email or web address]) Physical Therapy Current Condition Current Condition Evaluation Date 08/07/18 Treatment Diagnosis Left TKA; Orthostatic hypotension; difficulty walking Onset Date 08/06/2018 Weight Bearing Status Weight Bearing Status Weight Bear as Tolerated M3 PT-IP Subjective Start: 08/06/18 17:39 Freq: NEEDED Status: Active Protocol: Document 08/08/18 12:10 GGD (Rec: 08/08/18 12:25 GGD [email or web address]) Subjective Physical Therapy Visit Type Type Treatment Note Visit Start Time 11:45 Visit Stop Time 12:10 Total Visit Minutes 25 Number of DAIRY NUTRITION SPECIALIST Visits 1 Physical Therapy Visit Comments Patient Comments Pt states he feeling better. Therapy Pain Assessment Pain When Pain Assessed At Rest Pain Present Pain Present Pain Reported Location Left Knee Intensity 3 Scale Used Numeric (1 - 10) M4 PT-IP Mobility and Gait Start: 08/06/18 17:39 Freq: NEEDED Status: Active Protocol: Document 08/08/18 12:10 GGD (Rec: 08/08/18 12:25 GGD [email or web address]) PT-Transfer Assessment Sit to and From Stand Sit to and from Stand Standby Assistance Equipment Transfer Assistive Device Bed Rail Gait Belt Front Wheeled Walker Orthotic/Prosthetic Devices or Brace: No Transfer Ability Level of Assist Standby Assistance Comments Mobility Comments BP sitting 150/75, standing 136/81, after activity sitting 128/77 Gait Assessment Gait Gait Assistance Required: Standby Assistance Distance (Feet) 120 Able to Maintain Weight Bearing Status Yes During Gait Assistive Devices Assistive Device Gait Belt Front Wheeled Walker Gait Deviations General Gait Pattern Antalgic Factors Limiting Gait Function Factors Limiting Gait Function Decreased Strength Limited Range of Motion Pain Comments Gait Comments Pt need cues for gait pattern and pace. M5 PT-IP Objective Assessments Start: 08/06/18 17:39 Freq: NEEDED Status: Active Protocol: Document 08/07/18 16:15 (Rec: 08/07/18 17:55 [email or web address]) Orientation Orientation/Cognition Level of Alertness Alert Orientation Name Age Birthday Month Date Year Day of Week Place Situation Language Function Ability No Deficits Noted Gross Range of Motion Lower Extremity ROM Assessment Left Impaired Impairments Performed AAROME for L knee flexion/extension. R knee flexion PROM after ~70deg. Strength Lower Extremity Strength Assessment Left Impaired Comments Strength Comments RLE WNL. L knee grossly 3+/5. M6 PT-IP Treatment Start: 08/06/18 17:39 Freq: NEEDED Status: Active Protocol: Document 08/08/18 12:10 GGD (Rec: 08/08/18 12:25 GGD [email or web address]) Physical Therapy Treatment Exercises Exercises Ankle Pumps Seated Knee Flexion/Extension M7 PT-IP Assessment and Plan Start: 08/06/18 17:39 Freq: NEEDED Status: Active Protocol: Document 08/08/18 12:10 GGD (Rec: 08/08/18 12:25 GGD [email or web address]) PT Summary Assessment and Plan Summary Assessment Summary Pt improving with mobility. He need cues for gait quility. He hadn no d/c dizziness and stable BP. When pt is medically stable stafe for D/C home. Frequency of Treatment Frequency Of Treatment Twice a Day Treatment Plan Other Recommendations and Next Treatment Progress ambulation and stair Focus climbing as tolerated. TKA exercise Recommendations To Nursing Amount of Assist Needed 1 Person Assist Discharge Recommendations PT Discharge Recommendations Home with Assistance Outpatient PT
--- NOTE | 2018-08-08 15:40 | PT.IPTN ---
Current Diagnoses Unilateral primary osteoarthritis, left knee (08/06/18) Surgery Performed Operation Date: 08/06/18 11:00 Actual Procedures p Total Knee Arthroplasty(Left) - Jaime Astudillo MD Physical Therapy Treatment Note M2 PT-IP Current Condition Start: 08/06/18 17:39 Freq: NEEDED Status: Active Protocol: Document 08/07/18 16:15 (Rec: 08/07/18 17:55 [email or web address]) Physical Therapy Current Condition Current Condition Evaluation Date 08/07/18 Treatment Diagnosis Left TKA; Orthostatic hypotension; difficulty walking Onset Date 08/06/2018 Weight Bearing Status Weight Bearing Status Weight Bear as Tolerated M3 PT-IP Subjective Start: 08/06/18 17:39 Freq: NEEDED Status: Active Protocol: Document 08/08/18 15:40 GGD (Rec: 08/08/18 16:21 GGD [email or web address]) Subjective Physical Therapy Visit Type Type Treatment Note Visit Start Time 15:15 Visit Stop Time 15:40 Total Visit Minutes 25 Number of [employer] ROOTED HAIR Visits 2 Physical Therapy Visit Comments Patient Comments Pt states that he hopes to go home tomorrow. Therapy Pain Assessment Pain When Pain Assessed At Rest Pain Present Pain Present Pain Reported Location Left Knee Intensity 4 Scale Used Numeric (1 - 10) M4 PT-IP Mobility and Gait Start: 08/06/18 17:39 Freq: NEEDED Status: Active Protocol: Document 08/08/18 15:40 GGD (Rec: 08/08/18 16:21 GGD [id number]) PT-Bed Mobility Assessment Sit to Supine Sit to Supine Independent Scooting Scooting to Edge of Bed Independent PT-Transfer Assessment Sit to and From Stand Sit to and from Stand Standby Assistance Equipment Transfer Assistive Device Bed Rail Gait Belt Front Wheeled Walker Orthotic/Prosthetic Devices or Brace: No Transfer Ability Level of Assist Standby Assistance Comments Mobility Comments BP sitting 150/75, standing 136/81, after activity sitting 128/77 Gait Assessment Gait Gait Assistance Required: Standby Assistance Distance (Feet) 220 Able to Maintain Weight Bearing Status Yes During Gait Assistive Devices Assistive Device Gait Belt Front Wheeled Walker Gait Deviations General Gait Pattern Antalgic Factors Limiting Gait Function Factors Limiting Gait Function Abnormal Tonal Influences Decreased Sensation Limited Range of Motion Comments Gait Comments Cues for posture. Stair Climbing Assessment Evaluation Level of Assist On Stairs Standby Assistance Devices Stair Climbing Assistive Devices Right Railing Technique/Endurance Stair Climbing Direction Ascend and Descend Stair Climbing Technique Step to Step Number of Steps Climbed 3 Query Text: Stair Climbing Set # Repetitions (reps) 1 Comments Stair Climbing Comments cues for sequencing M5 PT-IP Objective Assessments Start: 08/06/18 17:39 Freq: NEEDED Status: Active Protocol: Document 08/07/18 16:15 (Rec: 08/07/18 17:55 [email or web address]) Orientation Orientation/Cognition Level of Alertness Alert Orientation Name Age Birthday Month Date Year Day of Week Place Situation Language Function Ability No Deficits Noted Gross Range of Motion Lower Extremity ROM Assessment Left Impaired Impairments Performed AAROME for L knee flexion/extension. R knee flexion PROM after ~70deg. Strength Lower Extremity Strength Assessment Left Impaired Comments Strength Comments RLE WNL. L knee grossly 3+/5. M6 PT-IP Treatment Start: 08/06/18 17:39 Freq: NEEDED Status: Active Protocol: Document 08/08/18 15:40 GGD (Rec: 08/08/18 16:21 GGD [id number]) Physical Therapy Treatment Exercises Exercises Ankle Pumps Quad Sets Passive Knee Extension Hang Seated Knee Flexion/Extension M7 PT-IP Assessment and Plan Start: 08/06/18 17:39 Freq: NEEDED Status: Active Protocol: Document 08/08/18 15:40 GGD (Rec: 08/08/18 16:21 GGD [id number]) PT Summary Assessment and Plan Summary Assessment Summary Pt improving with mobility and gait. He had no c/o dizziness with mobility. He did need cues for gait and posture. Pt safe for d/c when medically stable. Frequency of Treatment Frequency Of Treatment Twice a Day Treatment Plan Physical Therapy Treatment Plan Bed Mobility Training Transfer Training Gait Training Therapeutic Exercise Balance Retraining Post Op Education Discharge Planning Hot or Cold Pack Neuromuscular Re-ed Coordination Retraining Manual Therapy Recommendations To Nursing Amount of Assist Needed 1 Person Assist Discharge Recommendations PT Discharge Recommendations Home with Assistance Outpatient PT
[2018-08-09] MEDS: OXYCODONE IR 5 MG TABLET PO ×2 (00:41→10:19)
[2018-08-09] MEDS: IBUPROFEN 600 MG TABLET PO (04:46)
[2018-08-09 07:11] VITALS: BP 140/84; PULSE 85; RESP 17; TEMP 37.2; O2SAT 98
[2018-08-09] MEDS: ATORVASTATIN 20 MG TABLET 80 MG PO (07:55)
[2018-08-09] MEDS: ASPIRIN EC 81 MG TABLET PO (07:55)
[2018-08-09] MEDS: ACETAMINOPHEN 325 MG TABLET 975 MG PO (07:56)
[2018-08-09 08:00] VITALS: BP 124/92; BP 148/84; BP 172/94; PULSE 79; PULSE 90; RESP 16; TEMP 36.9; O2SAT 98
[2018-08-09] MEDS: MELOXICAM 7.5 MG TABLET 15 MG PO (08:35)
--- NOTE | 2018-08-09 10:37 | PM.PNPO.1 ---
Subjective Date Patient Seen: 08/09/18 Time Patient Seen: 10:37 Interval history: Patient is status post a left total knee arthroplasty. Patient doing much better today. Patient states he had quite a bit of pain issues few days ago but seem to make positive changes yesterday is feeling very good this morning. Has done quite well with physical therapy and is excited about going home. Exam Vital Signs (past 8 hours): - 08/09/18 07:11 08/09/18 08:00 Temperature 98.9 F 98.4 F Pulse Rate 85 79 Pulse Rate [Orthostatic Lying] 79 Pulse Rate [Orthostatic Sitting] 90 Pulse Rate [Orthostatic Standing] 90 Respiratory Rate 17 16 Blood Pressure 140/84 148/84 H Blood Pressure [Orthostatic Lying] 148/84 H Blood Pressure [Orthostatic Sitting] 172/94 H Blood Pressure [Orthostatic Standing] 124/92 H Pulse Oximetry 98 98 Oxygen Delivery Method Room Air Oxygen Flow Rate 0 Narrative Exam Narrative: Patient's incision is well-healed. Patient has good range of motion of the knee with minimal pain. Nontender to palpation over the posterior aspects of bilateral calves. Positive dorsiflexion and plantar flexion. Palpable pedal pulses. 5/5 strength in dorsiflexion and plantar flexion of the toes and ankle. Objective Labs Result Diagrams: 08/07/18 19:01 08/07/18 19:01 Assessment & Plan Post-op Postoperative Procedures Operation Date: 08/06/18 11:00 Actual Procedures Side Surgeon p Total Knee Arthroplasty Left Jaime Astudillo MD Postoperative day: 3 Postoperative status: doing well Postoperative plan: routine post-op care and discharge Postoperative plan narrative: Patient making very good improvements today. Patient is ready to be discharged home. Quality VTE Deep Vein Thrombosis/Pulmonary Embolism Present on Admission: No
--- NOTE | 2018-08-09 11:24 | PT.IPTN ---
Current Diagnoses Unilateral primary osteoarthritis, left knee (08/06/18) Surgery Performed Operation Date: 08/06/18 11:00 Actual Procedures p Total Knee Arthroplasty(Left) - Jaime Astudillo MD Physical Therapy Treatment Note M2 PT-IP Current Condition Start: 08/06/18 17:39 Freq: NEEDED Status: Active Protocol: Document 08/07/18 16:15 (Rec: 08/07/18 17:55 [email or web address]) Physical Therapy Current Condition Current Condition Evaluation Date 08/07/18 Treatment Diagnosis Left TKA; Orthostatic hypotension; difficulty walking Onset Date 08/06/2018 Weight Bearing Status Weight Bearing Status Weight Bear as Tolerated M3 PT-IP Subjective Start: 08/06/18 17:39 Freq: NEEDED Status: Active Protocol: Document 08/09/18 09:55 LJ (Rec: 08/09/18 11:24 LJ [id number]) Subjective Physical Therapy Visit Type Type Treatment Note Visit Start Time 09:55 Visit Stop Time 10:27 Total Visit Minutes 32 Number of [place] GRINDER Visits 3 Physical Therapy Visit Comments Patient Comments Pt ready to ambulate in hallway. Patient Goals DC home w/son this afternoon Therapy Pain Assessment Pain When Pain Assessed At Rest Pain Present Pain Present Pain Reported M4 PT-IP Mobility and Gait Start: 08/06/18 17:39 Freq: NEEDED Status: Active Protocol: Document 08/09/18 09:55 NITHIN (Rec: 08/09/18 11:24 LJ [id number]) PT-Bed Mobility Assessment Rolling Type of Rolling Roll to Left Supine to Sit Supine to Sit Independent Sit to Supine Sit to Supine Independent Scooting Scooting to Edge of Bed Independent PT-Transfer Assessment Sit to and From Stand Sit to and from Stand Independent Equipment Transfer Assistive Device Bed Rail Gait Belt Front Wheeled Walker Transfer Ability Level of Assist Standby Assistance Comments Mobility Comments Pt independent donning slippers, sit<>stand, bed mobility and SBA transfers. Gait Assessment Gait Gait Assistance Required: Standby Assistance Distance (Feet) 220 Able to Maintain Weight Bearing Status Yes During Gait Assistive Devices Assistive Device Gait Belt Front Wheeled Walker Gait Deviations General Gait Pattern Antalgic Factors Limiting Gait Function Factors Limiting Gait Function Abnormal Tonal Influences Decreased Activity Tolerance Decreased Strength Limited Range of Motion Pain Comments Gait Comments Cues for posture and FWW management. Lowered FWW allowing better shoulder relaxation. M5 PT-IP Objective Assessments Start: 08/06/18 17:39 Freq: NEEDED Status: Active Protocol: Document 08/07/18 16:15 (Rec: 08/07/18 17:55 [email or web address]) Orientation Orientation/Cognition Level of Alertness Alert Orientation Name Age Birthday Month Date Year Day of Week Place Situation Language Function Ability No Deficits Noted Gross Range of Motion Lower Extremity ROM Assessment Left Impaired Impairments Performed AAROME for L knee flexion/extension. R knee flexion PROM after ~70deg. Strength Lower Extremity Strength Assessment Left Impaired Comments Strength Comments RLE WNL. L knee grossly 3+/5. M6 PT-IP Treatment Start: 08/06/18 17:39 Freq: NEEDED Status: Active Protocol: Document 08/09/18 09:55 LJ (Rec: 08/09/18 11:24 LJ [id number]) Physical Therapy Treatment Exercises Exercises Gluteal Sets Quad Sets Short Arc Quads Seated Knee Flexion/Extension M7 PT-IP Assessment and Plan Start: 08/06/18 17:39 Freq: NEEDED Status: Active Protocol: Document 08/09/18 09:55 NITHIN (Rec: 08/09/18 11:24 LJ [id number]) PT Summary Assessment and Plan Summary Assessment Summary Pt improving gait posture and FWW management. Cueing for step thru pattern resulted in more normal gait. Still mod amount of antalgia. DC home today. Frequency of Treatment Frequency Of Treatment Twice a Day Treatment Plan Physical Therapy Treatment Plan Bed Mobility Training Transfer Training Gait Training Therapeutic Exercise Balance Retraining Post Op Education Discharge Planning Hot or Cold Pack Neuromuscular Re-ed Coordination Retraining Manual Therapy Other Recommendations and Next Treatment Progress ambulation and stair Focus climbing as tolerated. TKA exercise Recommendations To Nursing Amount of Assist Needed 1 Person Assist Discharge Recommendations PT Discharge Recommendations Home with Assistance Outpatient PT
--- NOTE | 2018-08-09 11:51 | CM.DPC ---
DCP/continued: Reviewed chart. Per Ortho MD patient okay to d/c home today. Met with patient to confirm plan. Patient aware and agreeable to discharge home today. Important message from [employer]are signed by patient at approximately 11:30AM. No additional needs identified. P: Home today. ALFIE Koch
== END 2018-08-09 12:22 | disposition home or self-care (01) ==
LOC: AC 08-08 13:36 → OR 08-09 12:39 → AC 08-09 12:39 → OR 08-09 12:41 → AC 08-09 12:41
PROVIDERS: Internal Medicine; Admitting Provider Orthopaedic Surgery; PCP Nurse Practitioner; Visit Provider Orthopaedic Surgery
PROC: 0SRD0JZ Replacement of Left Knee Joint with Synthetic Substitute, Open Approach (ICD-10-PCS; CPT 27447; principal; 2018-08-06 11:00)
DX: M17.12 Unilateral primary osteoarthritis, left knee (principal); I10 Essential (primary) hypertension; M35.3 Polymyalgia rheumatica; E78.5 Hyperlipidemia, unspecified; R00.1 Bradycardia, unspecified; R42 Dizziness and giddiness; E86.0 Dehydration; I95.9 Hypotension, unspecified
CPT/HCPCS: 27447; 36415; 64447; 71045; 73560; 80053; 81001; 84484; 85014; 85018; 85025; 93005; 94762; 97110; 97116; 97161; 97162; 97530; C1776; G0378; C9290; J1100; J2250; J2405; J2704; J2795; J3010